=== PATIENT | female | born 1945 | race Caucasian/White ===

== ENCOUNTER 2025-04-17 15:19 | Inpatient (IN) | payer OTHER ==
[~2025-04-17] VITALS: Ht 160 cm; Wt 62.6 kg
[2025-04-17 16:00] LABS: BASOPHILS % 0.2 % (0.0-2.0); EOSINOPHILS % 0.7 % (0.0-5.0); HEMATOCRIT. 39.5 % (36.0-48.0); HEMOGLOBIN. 13.2 g/dL (12.0-16.0); LYMPHOCYTES % 8.6 % (20.0-50.0); MEAN CORPUSCULAR HGB CONC 33.3 g/dL (31.0-37.0); MEAN CORPUSCULAR VOLUME 96.2 fL (81.0-99.0); MEAN PLATELET VOLUME 8.5 fl (7.4-10.4); MONOCYTES % 7.7 % (2.0-8.0); NEUTROPHILS % 82.8 % (40.0-76.0); PLATELET 190 x1000/uL (130-400); RED BLOOD CELL COUNT 4.11 mill/uL (4.2-5.4); RED CELL DISTRIBUTION WIDTH 14.4 % (11.6-14.6); WHITE BLOOD COUNT 9.7 x1000/uL (4.5-11.0)
[2025-04-17 16:05] LABS: CHLORIDE 104 mEq/L (98-107); SODIUM 139 mEq/L (136-145)
[2025-04-17 16:06] LABS: CALCIUM 10.2 mg/dL (8.7-10.4); CARBON DIOXIDE 24 mEq/L (21-32)
[2025-04-17 16:11] LABS: CREATININE 1.3 mg/dL (0.6-1.0); GLUCOSE 110 mg/dL (70-105); UREA NITROGEN BLOOD 21 mg/dL (9-23)
[2025-04-17 16:13] LABS: ALANINE AMINOTRANSFERASE 192 IU/L (10-49); ALBUMIN 4.8 g/dL (3.2-4.8); ASPARTATE AMINOTRANSFERASE 201 IU/L (<34); BILIRUBIN DIRECT < 0.1 mg/dL (<=3.0); BILIRUBIN TOTAL 0.4 mg/dL (0.1-1.0); PROTEIN TOTAL 8.2 g/dL (6.0-8.3)
[2025-04-17 16:14] LABS: TROPONIN I HIGH SENSITIVITY 327 ng/L (3.0-34)
[2025-04-17] MEDS ORDERED: HEPARIN 5000 UNITS/ML VIAL IV SCH (16:15)
[2025-04-17] MEDS ORDERED: HEPARIN 5000 UNITS/ML VIAL IV PRN ×4 (16:15→23:00)
[2025-04-17 16:20] LABS: PROTHROMBIN TIME 10.3 sec (9.6-11.0)
[2025-04-17] MEDS: IOHEXOL-350 100 ML BOTTLE ONE (16:41)
[2025-04-17] MEDS: HEPARIN 5000 UNITS/ML VIAL IV SCH (16:42)
[2025-04-17] MEDS: HEPARIN 25,000 UNITS PREMIX 250 ML IV PRN (17:53)
[2025-04-17] MEDS ORDERED: GUAIFENESIN 200MG/10ML SUGAR FREE UDC PO PRN (19:00)
[2025-04-17] MEDS ORDERED: IPRATROPIUM/ALBUTEROL 0.5-3(2.5)MG/3ML NEB HHN PRN (19:00)
[2025-04-17] MEDS ORDERED: MAGNESIUM/ALUMINUM HYDROXIDE/SIMETHICONE 30ML UDC PO PRN (19:00)
[2025-04-17] MEDS ORDERED: ONDANSETRON HCL 4MG/2ML INJ IV PRN (19:00)
[2025-04-17] MEDS ORDERED: DOCUSATE SODIUM 100MG CAPSULE PO PRN (19:00)
[2025-04-17] MEDS ORDERED: DEXTROSE 50% WATER 50ML SYRINGE IV PRN (19:00)
[2025-04-17] MEDS ORDERED: ACETAMINOPHEN 325MG TABLET PO PRN (19:00)
[2025-04-17] MEDS ORDERED: LEVO112T7 PO (19:52)
[2025-04-17 20:00] VITALS: BP 155/95; PULSE 86; RESP 15; TEMP 36.8; O2SAT 96
[2025-04-17] MEDS: BLOOD SUGAR DIAGNOSTIC STRIP TEST SCH (21:00)
[2025-04-17] MEDS: CLONIDINE 0.1MG TABLET PO PRN (21:50)
[2025-04-17] MEDS: DEXT 5%/0.45% NACL 1000ML 1,000 ML IV SCH (21:52)
[2025-04-17 22:00] VITALS: BP_SYST 150; BP_SYST 165; BP_DIAS 103; BP_DIAS 86; PULSE 125; PULSE 89; RESP 18; TEMP 36.8; O2SAT 98
[2025-04-17] MEDS ORDERED: HEPARIN 25,000 UNITS PREMIX 250 ML IV SCH (23:30)
[2025-04-17 23:38] LABS: CREATINE KINASE 165 IU/L (34-145)
[2025-04-17 23:56] LABS: TROPONIN I HIGH SENSITIVITY 1015 ng/L (3.0-34)
[2025-04-18] VITALS (12 sets, daily range): BP systolic 88–145; BP diastolic 57–78; PULSE 67–88; RESP 12–26; TEMP 36.1–36.8; O2SAT 92–98
[2025-04-18 06:30] LABS: CALCIUM 8.8 mg/dL (8.7-10.4); POTASSIUM 3.9 mEq/L (3.5-5.1)
[2025-04-18 06:35] LABS: T4 FREE 0.95 ng/dL (0.89-1.76)
[2025-04-18 06:36] LABS: THYROID STIMULATING HORMONE 17.2 uIU/mL (0.55-4.78)
[2025-04-18 06:50] LABS: BASOPHILS % 0.4 % (0.0-2.0); EOSINOPHILS % 1.7 % (0.0-5.0); HEMATOCRIT. 33.8 % (36.0-48.0); HEMOGLOBIN. 11.7 g/dL (12.0-16.0); LYMPHOCYTES % 15.8 % (20.0-50.0); MEAN CORPUSCULAR HEMOGLOBIN 33.2 pg (28.0-32.0); MEAN CORPUSCULAR HGB CONC 34.4 g/dL (31.0-37.0); MEAN CORPUSCULAR VOLUME 96.3 fL (81.0-99.0); MEAN PLATELET VOLUME 9.3 fl (7.4-10.4); MONOCYTES % 6.9 % (2.0-8.0); NEUTROPHILS % 75.2 % (40.0-76.0); PLATELET 166 x1000/uL (130-400); RED BLOOD CELL COUNT 3.51 mill/uL (4.2-5.4); RED CELL DISTRIBUTION WIDTH 14.2 % (11.6-14.6); WHITE BLOOD COUNT 9.5 x1000/uL (4.5-11.0)
[2025-04-18] MEDS: LEVOTHYROXINE SODIUM 112MCG TABLET PO SCH (11:53)
[2025-04-18] MEDS: PANTOPRAZOLE SODIUM 40 MG/VIAL IV SCH (11:53)
[2025-04-18 16:28] LABS: HEMATOCRIT 32.8 % (36.0-48.0); HEMOGLOBIN 11.5 g/dL (12.0-16.0); MEAN CORPUSCULAR HEMOGLOBIN 34.4 pg (28.0-32.0); MEAN CORPUSCULAR VOLUME 98.1 fL (81.0-99.0); PLATELET 173 x1000/uL (130-400); RED BLOOD CELL COUNT 3.34 mill/uL (4.2-5.4); RED CELL DISTRIBUTION WIDTH 14.4 % (11.6-14.6); WHITE BLOOD COUNT 8.5 x1000/uL (4.5-11.0)
[2025-04-18 16:33] LABS: CREATINE KINASE MB FRACTION 2.5 ng/mL (0.5-3.6)
[2025-04-18] MEDS: APIXABAN 5 MG TABLET PO SCH (17:58)
[2025-04-18] MEDS: ATORVASTATIN CALCIUM 40MG TABLET PO SCH (22:49)
[2025-04-18 23:20] LABS: CREATINE KINASE MB FRACTION 1.5 ng/mL (0.5-3.6)
[2025-04-19] VITALS (11 sets, daily range): BP systolic 121–169; BP diastolic 51–91; PULSE 59–80; RESP 16–26; TEMP 36.7–37.1; O2SAT 92–99
[2025-04-19 06:42] LABS: BASOPHILS % 0.3 % (0.0-2.0); EOSINOPHILS % 3.7 % (0.0-5.0); HEMATOCRIT. 30.5 % (36.0-48.0); HEMOGLOBIN. 10.6 g/dL (12.0-16.0); LYMPHOCYTES % 18.3 % (20.0-50.0); MEAN CORPUSCULAR HEMOGLOBIN 33.3 pg (28.0-32.0); MEAN CORPUSCULAR HGB CONC 34.6 g/dL (31.0-37.0); MEAN CORPUSCULAR VOLUME 96.1 fL (81.0-99.0); MEAN PLATELET VOLUME 9.2 fl (7.4-10.4); MONOCYTES % 7.3 % (2.0-8.0); NEUTROPHILS % 70.4 % (40.0-76.0); PLATELET 150 x1000/uL (130-400); RED BLOOD CELL COUNT 3.17 mill/uL (4.2-5.4); RED CELL DISTRIBUTION WIDTH 14.5 % (11.6-14.6); WHITE BLOOD COUNT 6.1 x1000/uL (4.5-11.0)
[2025-04-19 06:44] LABS: POTASSIUM 3.8 mEq/L (3.5-5.1)
[2025-04-19 06:45] LABS: CALCIUM 8.6 mg/dL (8.7-10.4)
[2025-04-19] MEDS ORDERED: APIX5TAB PO (16:06)
[2025-04-19] MEDS ORDERED: APIX5TAB MT (16:06)
== END 2025-04-19 18:10 | disposition home or self-care (01) | DRG 175 ==
LOC: ER 15:19 → 5EST 17:28 → EDBEDREQTM 17:35 → EDBEDREQ 17:35 → ENRESERV 17:56
PROVIDERS: ADMIT Internal Medicine; ATTEND Internal Medicine
DX: I26.99 Other pulmonary embolism without acute cor pulmonale (principal); I21.A1 Myocardial infarction type 2; N17.9 Acute kidney failure, unspecified; E03.9 Hypothyroidism, unspecified; R73.9 Hyperglycemia, unspecified; I11.9 Hypertensive heart disease without heart failure; E78.5 Hyperlipidemia, unspecified; R74.01 Elevation of levels of liver transaminase levels; Z82.49 Family history of ischemic heart disease and other diseases of the circulatory system; Z87.891 Personal history of nicotine dependence
CPT/HCPCS: 36415; 71275; 80048; 80061; 80076; 82550; 82553; 82962; 83036; 83520; 83735; 83880; 84439; 84443; 84484; 85025; 85027; 86850; 86900; 93005; 93306; 93970; 99291; J1644; J2470; Q9967